=== PATIENT | male | born 1940 | race Caucasian/White ===

== ENCOUNTER 2020-10-26 21:32 | Inpatient (IN) | payer OTHER, MEDICARE ==
[~2020-10-26] VITALS: Ht 165.1 cm; Wt 76.1 kg
[~2020-10-26 21:32] MED LIST: ACIPHEX20 MG PO; ALBUTEROL; ASPIRIN E.C.325 MG PO; LISINOPRIL5 MG PO; MVI; NEXIUM40 MG PO; NIASPAN500 MG PO; OMEGA 31000 MG PO; REFRESH PLUS1 SOL OP; SINGULAIR10 MG PO; TRICOR145 MG PO; VENTOLIN0.09 MG IH; XALATAN EYE DROPS OU; ZOCOR80 MG PO; ZYRTEC10 MG PO; ZYRTEC5 MG PO; [UNRECOGNIZED DRUG - OTHER]; dorzolamide
[2020-10-26 22:03] LABS: BASO % 0.4 % (0.0-2.0); EOS # 0.1 (0.0-0.7); EOS % 1.4 % (0-4.0); HEMATOCRIT 37.3 % (42.0-52.0); HEMOGLOBIN 12.8 g/dl (13.5-18.0); LYMPH # 0.4 (1.2-3.4); LYMPH % 3.5 % (20.0-51.0); MEAN CELL VOLUME 91 fl (80.0-100.0); MEAN CORPUSCULAR HEMOGLOBIN 31 pg (27.0-31.0); MEAN CORPUSCULAR HGB CONC 34 g/dl (33.0-37.0); MONO # 0.6 (0.1-0.6); MONO % 5.7 % (1.7-9.3); PLATELET COUNT 258 K/mm3 (130-400); RED BLOOD COUNT 4.12 M/mm3 (4.20-5.60); REDCELL DISTRIBUTION WIDTH-CV 12.7 % (11.5-14.5)
[2020-10-26 22:11] LABS: INR 1.6 (0.8-3.0)
[2020-10-26 22:13] LABS: PARTIAL THROMBOPLASTIN TIME 34.9 SECONDS (26.0-37.0)
[2020-10-26 22:16] LABS: ALBUMIN 3.9 gm/dL (3.5-5.0); BILIRUBIN,TOTAL 0.7 mg/dL (0.0-1.0); CALCIUM 9.2 mg/dL (8.4-10.2); CREATININE, serum 0.94 (0.66-1.25); POTASSIUM 3.6 mmol/L (3.4-5.0); TOTAL PROTEIN 6.9 gm/dL (6.4-8.2)
[2020-10-26 22:27] LABS: TROPONIN-I 0.015 ng/mL (0.000-0.035)
[2020-10-27 02:21] VITALS: PULSE 70; TEMP 97.7
[2020-10-27] MEDS ORDERED: ELIQUIS 5MG PO (02:55)
[2020-10-27] MEDS ORDERED: LIPITOR 80MG80 MG PO (02:56)
[2020-10-27] MEDS ORDERED: COREG 25MG25 MG/TAB PO (02:57)
[2020-10-27] MEDS ORDERED: NEURONTIN100 MG/CAP PO (02:58)
[2020-10-27] MEDS ORDERED: MIRAPEX 1MG PO (02:59)
[2020-10-27] MEDS ORDERED: ENTRESTO 97 MG1 EACH PO (03:00)
[2020-10-27] MEDS ORDERED: NITROSTAT0.4 MG/TAB PO (03:01)
[2020-10-27] MEDS ORDERED: PLAVIX 75MG TAB75 MG PO (03:04)
[2020-10-27 04:00] VITALS: BP 148/66; PULSE 62; TEMP 98.9
[2020-10-27 07:29] LABS: HEMATOCRIT 39.8 % (42.0-52.0); HEMOGLOBIN 13.3 g/dl (13.5-18.0); MEAN CELL VOLUME 92 fl (80.0-100.0); MEAN CORPUSCULAR HEMOGLOBIN 31 pg (27.0-31.0); MEAN CORPUSCULAR HGB CONC 33 g/dl (33.0-37.0); MEAN PLATELET VOLUME 10.3 fl (7.4-10.4); PLATELET COUNT 275 K/mm3 (130-400); RED BLOOD COUNT 4.31 M/mm3 (4.20-5.60); REDCELL DISTRIBUTION WIDTH-CV 12.9 % (11.5-14.5)
[2020-10-27 07:36] LABS: CALCIUM 11.2 mg/dL (8.4-10.2); CREATININE, serum 0.93 (0.66-1.25)
[2020-10-27 07:43] VITALS: BP 153/66; PULSE 69; TEMP 97.8
[2020-10-27 08:50] LABS: BAND 19 % (0-10); LYMPHOCYTE 4 % (20.0-51.0); NEUTROPHILS 74 % (42.0-75.2)
[2020-10-27 08:51] LABS: BURR CELLS 2+
[2020-10-27 11:48] VITALS: BP 146/61; PULSE 66; TEMP 98.3
[2020-10-27 15:34] VITALS: BP 136/65; PULSE 75; TEMP 98.3
[2020-10-27 19:47] VITALS: BP 134/57; PULSE 74; TEMP 98.4
[2020-10-28] VITALS (7 sets, daily range): BP systolic 122–149; BP diastolic 51–68; PULSE 56–79; TEMP 97.7–99.9
[2020-10-29 03:37] VITALS: BP 141/62; PULSE 68; TEMP 98.1
[2020-10-29 03:41] LABS: ARTERIAL BLOOD GAS BASE EXCESS -1.2 (-2-2); ARTERIAL BLOOD GAS PCO2 28.3 mmHg (35-45); ARTERIAL BLOOD GAS pH 7.48 (7.35-7.45)
[2020-10-29 07:09] LABS: HEMOGLOBIN 11.9 g/dl (13.5-18.0); MEAN CELL VOLUME 91 fl (80.0-100.0); MEAN CORPUSCULAR HEMOGLOBIN 30 pg (27.0-31.0); MEAN CORPUSCULAR HGB CONC 34 g/dl (33.0-37.0); MEAN PLATELET VOLUME 10.1 fl (7.4-10.4); PLATELET COUNT 326 K/mm3 (130-400); RED BLOOD COUNT 3.92 M/mm3 (4.20-5.60); REDCELL DISTRIBUTION WIDTH-CV 13.2 % (11.5-14.5)
[2020-10-29 07:16] LABS: HEMATOCRIT 35.5 % (42.0-52.0)
[2020-10-29 07:23] LABS: CALCIUM 8.6 mg/dL (8.4-10.2); CREATININE, serum 1.03 (0.66-1.25); POTASSIUM 3.8 mmol/L (3.4-5.0)
[2020-10-29 07:57] VITALS: BP 125/68; PULSE 64; TEMP 97.7
[2020-10-29 08:49] LABS: BAND 14 % (0-10); LYMPHOCYTE 1 % (20.0-51.0); NEUTROPHILS 78 % (42.0-75.2)
[2020-10-29 08:50] LABS: PLATELET ESTIMATE NORMAL (NORMAL)
[2020-10-29 11:54] VITALS: BP 127/60; PULSE 64; TEMP 97.7
[2020-10-29 16:05] VITALS: BP 127/65; PULSE 72; TEMP 97.9
[2020-10-29 20:02] VITALS: BP 118/67; PULSE 67; TEMP 98.8
[2020-10-30] VITALS (440 sets, daily range): BP systolic 117–145; BP diastolic 53–75; PULSE 65–79; TEMP 97.3–100.7; O2SAT 73–98
[2020-10-30 07:47] LABS: BASO % 0.1 % (0.0-2.0); EOS % 0.1 % (0-4.0); GRAN # 15.1 (1.4-6.5); GRAN % 89.4 % (42.2-75.2); HEMOGLOBIN 12.4 g/dl (13.5-18.0); LYMPH # 0.9 (1.2-3.4); LYMPH % 5.1 % (20.0-51.0); MEAN CELL VOLUME 90 fl (80.0-100.0); MEAN CORPUSCULAR HEMOGLOBIN 31 pg (27.0-31.0); MEAN CORPUSCULAR HGB CONC 34 g/dl (33.0-37.0); MEAN PLATELET VOLUME 10.1 fl (7.4-10.4); MONO # 0.8 (0.1-0.6); MONO % 4.5 % (1.7-9.3); PLATELET COUNT 384 K/mm3 (130-400); RED BLOOD COUNT 4.06 M/mm3 (4.20-5.60); REDCELL DISTRIBUTION WIDTH-CV 13.3 % (11.5-14.5)
[2020-10-30 07:55] LABS: HEMATOCRIT 36.4 % (42.0-52.0)
[2020-10-30 08:09] LABS: CALCIUM 8.8 mg/dL (8.4-10.2); CREATININE, serum 0.96 (0.66-1.25); POTASSIUM 3.7 mmol/L (3.4-5.0)
[2020-10-30 08:18] LABS: ARTERIAL BLD GAS O2 SATURATION 89.5 % (92-100); ARTERIAL BLD GAS TCO2 CT 21.7; ARTERIAL BLOOD GAS BASE EXCESS 1.5 (-2-2); ARTERIAL BLOOD GAS pH 7.59 (7.35-7.45)
[2020-10-30 08:19] LABS: ARTERIAL BLOOD GAS PCO2 22.2 mmHg (35-45)
[2020-10-30 15:47] LABS: ARTERIAL BLD GAS O2 SATURATION 95.9 % (92-100); ARTERIAL BLOOD GAS BASE EXCESS -1.2 (-2-2); ARTERIAL BLOOD GAS HCO3 20.4 meq/L (22-26); ARTERIAL BLOOD GAS PO2 81.2 mmHg (80-100); ARTERIAL BLOOD GAS pH 7.51 (7.35-7.45)
[2020-10-31] VITALS (720 sets, daily range): BP systolic 104–135; BP diastolic 62–77; PULSE 65–91; TEMP 97.6–98.5; O2SAT 72–100
[2020-10-31 05:58] LABS: HEMATOCRIT 39.7 % (42.0-52.0); HEMOGLOBIN 13.2 g/dl (13.5-18.0); MEAN CELL VOLUME 92 fl (80.0-100.0); MEAN CORPUSCULAR HEMOGLOBIN 30 pg (27.0-31.0); MEAN CORPUSCULAR HGB CONC 33 g/dl (33.0-37.0); MEAN PLATELET VOLUME 9.8 fl (7.4-10.4); PLATELET COUNT 462 K/mm3 (130-400); RED BLOOD COUNT 4.34 M/mm3 (4.20-5.60); REDCELL DISTRIBUTION WIDTH-CV 13.5 % (11.5-14.5)
[2020-10-31 06:11] LABS: ALBUMIN 3.8 gm/dL (3.5-5.0); BILIRUBIN,TOTAL 0.7 mg/dL (0.0-1.0); CALCIUM 9.1 mg/dL (8.4-10.2); CREATININE, serum 1.15 (0.66-1.25); TOTAL PROTEIN 7.5 gm/dL (6.4-8.2)
[2020-10-31 06:22] LABS: LYMPHOCYTE 5 % (20.0-51.0); NEUTROPHILS 92 % (42.0-75.2); PLATELET ESTIMATE INCREASED (NORMAL)
[2020-10-31 06:29] LABS: C-REACTIVE PROTEIN 16.9 mg/dL (0.0-0.9)
[2020-10-31 12:09] LABS: ARTERIAL BLD GAS O2 SATURATION 90.8 % (92-100); ARTERIAL BLD GAS TCO2 CT 20.7; ARTERIAL BLOOD GAS BASE EXCESS -2.3 (-2-2); ARTERIAL BLOOD GAS HCO3 19.8 meq/L (22-26); ARTERIAL BLOOD GAS PO2 58.8 mmHg (80-100); ARTERIAL BLOOD GAS pH 7.48 (7.35-7.45)
[2020-11-01] VITALS (670 sets, daily range): BP systolic 109–139; BP diastolic 62–94; PULSE 55–78; TEMP 97.5–98.5; O2SAT 80–100
[2020-11-01 04:15] LABS: ARTERIAL BLD GAS O2 SATURATION 95.5 % (92-100); ARTERIAL BLD GAS TCO2 CT 20.1; ARTERIAL BLOOD GAS BASE EXCESS -3.4 (-2-2); ARTERIAL BLOOD GAS HCO3 19.2 meq/L (22-26); ARTERIAL BLOOD GAS PCO2 27.8 mmHg (35-45); ARTERIAL BLOOD GAS PO2 74.9 mmHg (80-100); ARTERIAL BLOOD GAS pH 7.46 (7.35-7.45)
[2020-11-01 04:29] LABS: HEMOGLOBIN 11.6 g/dl (13.5-18.0); MEAN CELL VOLUME 90 fl (80.0-100.0); MEAN CORPUSCULAR HEMOGLOBIN 31 pg (27.0-31.0); MEAN CORPUSCULAR HGB CONC 35 g/dl (33.0-37.0); MEAN PLATELET VOLUME 9.7 fl (7.4-10.4); RED BLOOD COUNT 3.73 M/mm3 (4.20-5.60); REDCELL DISTRIBUTION WIDTH-CV 13.9 % (11.5-14.5)
[2020-11-01 04:33] LABS: HEMATOCRIT 33.6 % (42.0-52.0); PLATELET COUNT 327 K/mm3 (130-400)
[2020-11-01 04:46] LABS: C-REACTIVE PROTEIN 20.5 mg/dL (0.00-0.50); CALCIUM 9.1 mg/dL (8.4-10.2); CREATININE, serum 1.11 mg/dL (0.72-1.25); MAGNESIUM 2.6 mg/dL (1.6-2.6); POTASSIUM 3.8 mmol/L (3.5-4.5)
[2020-11-01 05:36] LABS: BAND 15 % (0-10); LYMPHOCYTE 5 % (20.0-51.0); METAMYELOCYTE 1 % (0-0); NEUTROPHILS 75 % (42.0-75.2)
[2020-11-01 05:37] LABS: BURR CELLS 1+; PLATELET ESTIMATE NORMAL (NORMAL); POIKILOCYTOSIS 1+
[2020-11-02] VITALS (416 sets, daily range): BP systolic 97–131; BP diastolic 51–65; PULSE 68–96; TEMP 97.6–98.3; O2SAT 76–100
[2020-11-02 03:37] LABS: MEAN CELL VOLUME 88 fl (80.0-100.0); MEAN CORPUSCULAR HEMOGLOBIN 31 pg (27.0-31.0); MEAN CORPUSCULAR HGB CONC 35 g/dl (33.0-37.0); PLATELET COUNT 366 K/mm3 (130-400); RED BLOOD COUNT 3.92 M/mm3 (4.20-5.60); REDCELL DISTRIBUTION WIDTH-CV 13.6 % (11.5-14.5)
[2020-11-02 04:55] LABS: C-REACTIVE PROTEIN 13.7 mg/dL (0.00-0.50); CALCIUM 8.9 mg/dL (8.4-10.2); CREATININE, serum 0.86 mg/dL (0.72-1.25); MAGNESIUM 2.3 mg/dL (1.6-2.6); POTASSIUM 4.2 mmol/L (3.5-4.5)
[2020-11-02 05:04] LABS: HEMATOCRIT 34.3 % (42.0-52.0)
[2020-11-02 05:07] LABS: BAND 2 % (0-10); BURR CELLS 1+; LYMPHOCYTE 3 % (20.0-51.0); NEUTROPHILS 93 % (42.0-75.2); PLATELET ESTIMATE NORMAL (NORMAL)
[2020-11-02 05:08] LABS: SCHISTOCYTES 1+
[2020-11-03 03:11] LABS: ARTERIAL BLD GAS TCO2 CT 20.4; ARTERIAL BLOOD GAS BASE EXCESS -2.8 (-2-2); ARTERIAL BLOOD GAS HCO3 19.5 meq/L (22-26); ARTERIAL BLOOD GAS PCO2 28.2 mmHg (35-45); ARTERIAL BLOOD GAS PO2 58.8 mmHg (80-100); ARTERIAL BLOOD GAS pH 7.46 (7.35-7.45)
[2020-11-03 03:29] VITALS: BP 120/59; PULSE 67; TEMP 98.1
[2020-11-03 06:34] LABS: HEMOGLOBIN 12.4 g/dl (13.5-18.0); MEAN CELL VOLUME 91 fl (80.0-100.0); MEAN CORPUSCULAR HEMOGLOBIN 31 pg (27.0-31.0); MEAN CORPUSCULAR HGB CONC 34 g/dl (33.0-37.0); MEAN PLATELET VOLUME 10.3 fl (7.4-10.4); PLATELET COUNT 306 K/mm3 (130-400); RED BLOOD COUNT 3.98 M/mm3 (4.20-5.60); REDCELL DISTRIBUTION WIDTH-CV 13.6 % (11.5-14.5)
[2020-11-03 06:40] LABS: C-REACTIVE PROTEIN 16.8 mg/dL (0.00-0.50); CALCIUM 8.8 mg/dL (8.4-10.2); CREATININE, serum 0.84 mg/dL (0.72-1.25); POTASSIUM 4.1 mmol/L (3.5-4.5)
[2020-11-03 08:46] VITALS: BP 113/64; PULSE 95; TEMP 98.3
[2020-11-03 09:05] LABS: BURR CELLS 1+; LYMPHOCYTE 2 % (20.0-51.0); NEUTROPHILS 97 % (42.0-75.2); PLATELET ESTIMATE NORMAL (NORMAL)
[2020-11-03 12:09] VITALS: BP 107/57; PULSE 75; TEMP 98.3
[2020-11-03 12:57] LABS: CLOSTRIDIUM DIFF A/B NEG; CLOSTRIDIUM DIFF A/B INTERP No C.diff present
[2020-11-03 16:33] VITALS: BP 130/71; PULSE 76; TEMP 98.4
[2020-11-03 20:03] VITALS: BP 120/64; PULSE 70; TEMP 97.8
[2020-11-03 23:46] VITALS: BP 125/62; PULSE 76; TEMP 98
[2020-11-04] VITALS (350 sets, daily range): BP systolic 62–163; BP diastolic 34–78; PULSE 44–104; TEMP 97.9–98.7; O2SAT 56–100
[2020-11-04 03:15] LABS: ARTERIAL BLD GAS O2 SATURATION 91.4 % (92-100); ARTERIAL BLD GAS TCO2 CT 21.3; ARTERIAL BLOOD GAS BASE EXCESS -2.2 (-2-2); ARTERIAL BLOOD GAS HCO3 20.4 meq/L (22-26); ARTERIAL BLOOD GAS PCO2 28.9 mmHg (35-45); ARTERIAL BLOOD GAS PO2 58.4 mmHg (80-100); ARTERIAL BLOOD GAS pH 7.47 (7.35-7.45)
[2020-11-04 07:13] LABS: HEMOGLOBIN 12.7 g/dl (13.5-18.0); MEAN CELL VOLUME 89 fl (80.0-100.0); MEAN CORPUSCULAR HEMOGLOBIN 31 pg (27.0-31.0); MEAN CORPUSCULAR HGB CONC 34 g/dl (33.0-37.0); PLATELET COUNT 259 K/mm3 (130-400); RED BLOOD COUNT 4.16 M/mm3 (4.20-5.60)
[2020-11-04 07:14] LABS: HEMATOCRIT 36.9 % (42.0-52.0)
[2020-11-04 07:33] LABS: C-REACTIVE PROTEIN 16.5 mg/dL (0.00-0.50); CREATININE, serum 0.85 mg/dL (0.72-1.25); POTASSIUM 4.6 mmol/L (3.5-4.5)
[2020-11-04 07:58] LABS: BAND 11 % (0-10); LYMPHOCYTE 2 % (20.0-51.0); NEUTROPHILS 87 % (42.0-75.2)
[2020-11-04 07:59] LABS: MICROCYTOSIS 1+; OVALOCYTES 1+; PLATELET ESTIMATE NORMAL (NORMAL)
[2020-11-04 15:11] LABS: ARTERIAL BLD GAS O2 SATURATION 98.7 % (92-100); ARTERIAL BLD GAS TCO2 CT 21.9; ARTERIAL BLOOD GAS BASE EXCESS -4.5 (-2-2); ARTERIAL BLOOD GAS HCO3 20.8 meq/L (22-26); ARTERIAL BLOOD GAS PCO2 38.9 mmHg (35-45); ARTERIAL BLOOD GAS pH 7.35 (7.35-7.45)
[2020-11-04 15:13] LABS: ARTERIAL BLOOD GAS PO2 145.7 mmHg (80-100)
[2020-11-04 20:10] LABS: ARTERIAL BLD GAS O2 SATURATION 98.3 % (92-100); ARTERIAL BLD GAS TCO2 CT 21.6; ARTERIAL BLOOD GAS HCO3 20.4 meq/L (22-26); ARTERIAL BLOOD GAS PCO2 39.2 mmHg (35-45); ARTERIAL BLOOD GAS pH 7.34 (7.35-7.45)
[2020-11-04 20:11] LABS: ARTERIAL BLOOD GAS PO2 132.9 mmHg (80-100)
[2020-11-05] VITALS (748 sets, daily range): BP systolic 75–161; BP diastolic 38–77; PULSE 44–100; TEMP 97.7–97.9; O2SAT 80–100
[2020-11-05 04:32] LABS: ARTERIAL BLD GAS O2 SATURATION 94.9 % (92-100); ARTERIAL BLD GAS TCO2 CT 18.2; ARTERIAL BLOOD GAS BASE EXCESS -8.3 (-2-2); ARTERIAL BLOOD GAS HCO3 17.1 meq/L (22-26); ARTERIAL BLOOD GAS PCO2 35.2 mmHg (35-45); ARTERIAL BLOOD GAS pH 7.31 (7.35-7.45)
[2020-11-05 04:51] LABS: HEMOGLOBIN 12.2 g/dl (13.5-18.0); MEAN CELL VOLUME 91 fl (80.0-100.0); MEAN CORPUSCULAR HEMOGLOBIN 30 pg (27.0-31.0); MEAN CORPUSCULAR HGB CONC 33 g/dl (33.0-37.0); MEAN PLATELET VOLUME 10.4 fl (7.4-10.4); PLATELET COUNT 242 K/mm3 (130-400); RED BLOOD COUNT 4.04 M/mm3 (4.20-5.60); REDCELL DISTRIBUTION WIDTH-CV 14.1 % (11.5-14.5)
[2020-11-05 04:53] LABS: HEMATOCRIT 36.7 % (42.0-52.0)
[2020-11-05 05:15] LABS: BAND 4 % (0-10); LYMPHOCYTE 2 % (20.0-51.0); NEUTROPHILS 92 % (42.0-75.2); PLATELET ESTIMATE NORMAL (NORMAL)
[2020-11-05 05:16] LABS: CALCIUM 8.4 mg/dL (8.4-10.2); CREATININE, serum 1.19 mg/dL (0.72-1.25); MAGNESIUM 2.7 mg/dL (1.6-2.6); PHOSPHOROUS 5.3 mg/dL (2.3-4.7); POTASSIUM 4.9 mmol/L (3.5-4.5)
[2020-11-05 16:07] LABS: ARTERIAL BLD GAS O2 SATURATION 90.6 % (92-100); ARTERIAL BLOOD GAS BASE EXCESS -5.9 (-2-2); ARTERIAL BLOOD GAS PCO2 31.2 mmHg (35-45); ARTERIAL BLOOD GAS PO2 62.4 mmHg (80-100); ARTERIAL BLOOD GAS pH 7.38 (7.35-7.45)
[2020-11-06] VITALS (742 sets, daily range): BP systolic 50–151; BP diastolic 30–75; PULSE 55–91; TEMP 97.8–98.8; O2SAT 81–100
[2020-11-06 03:46] LABS: ARTERIAL BLD GAS TCO2 CT 17.5; ARTERIAL BLOOD GAS BASE EXCESS -7.8 (-2-2); ARTERIAL BLOOD GAS HCO3 16.5 meq/L (22-26); ARTERIAL BLOOD GAS PCO2 30.6 mmHg (35-45); ARTERIAL BLOOD GAS PO2 67.5 mmHg (80-100); ARTERIAL BLOOD GAS pH 7.35 (7.35-7.45)
[2020-11-06 04:25] LABS: HEMOGLOBIN 13.1 g/dl (13.5-18.0); MEAN CELL VOLUME 94 fl (80.0-100.0); MEAN CORPUSCULAR HEMOGLOBIN 31 pg (27.0-31.0); MEAN CORPUSCULAR HGB CONC 33 g/dl (33.0-37.0); MEAN PLATELET VOLUME 10.4 fl (7.4-10.4); PLATELET COUNT 301 K/mm3 (130-400); RED BLOOD COUNT 4.27 M/mm3 (4.20-5.60); REDCELL DISTRIBUTION WIDTH-CV 14.3 % (11.5-14.5)
[2020-11-06 04:47] LABS: CALCIUM 8.4 mg/dL (8.4-10.2); CREATININE, serum 1.5 mg/dL (0.72-1.25); PHOSPHOROUS 4.3 mg/dL (2.3-4.7); POTASSIUM 4.6 mmol/L (3.5-4.5)
[2020-11-06 05:26] LABS: BAND 1 % (0-10); EOSINOPHIL 6 % (0-4); LYMPHOCYTE 2 % (20.0-51.0); NEUTROPHILS 90 % (42.0-75.2)
[2020-11-06 05:27] LABS: ANISOCYTOSIS 1+; OVALOCYTES 1+; PLATELET ESTIMATE NORMAL (NORMAL); POIKILOCYTOSIS 1+
[2020-11-06 15:27] LABS: ARTERIAL BLD GAS O2 SATURATION 97.3 % (92-100); ARTERIAL BLD GAS TCO2 CT 18.1; ARTERIAL BLOOD GAS PCO2 33.6 mmHg (35-45); ARTERIAL BLOOD GAS PO2 101.3 mmHg (80-100); ARTERIAL BLOOD GAS pH 7.32 (7.35-7.45)
[2020-11-07] VITALS (392 sets, daily range): BP systolic 69–136; BP diastolic 42–61; PULSE 69–96; TEMP 98.2–98.9; O2SAT 79–100
[2020-11-07 00:53] LABS: ARTERIAL BLD GAS O2 SATURATION 93.2 % (92-100); ARTERIAL BLOOD GAS BASE EXCESS -3.6 (-2-2); ARTERIAL BLOOD GAS HCO3 20.9 meq/L (22-26); ARTERIAL BLOOD GAS PCO2 36.1 mmHg (35-45); ARTERIAL BLOOD GAS PO2 69.1 mmHg (80-100); ARTERIAL BLOOD GAS pH 7.38 (7.35-7.45)
[2020-11-07 05:06] LABS: ARTERIAL BLD GAS O2 SATURATION 91.4 % (92-100); ARTERIAL BLD GAS TCO2 CT 24.3; ARTERIAL BLOOD GAS BASE EXCESS -1.3 (-2-2); ARTERIAL BLOOD GAS HCO3 23.1 meq/L (22-26); ARTERIAL BLOOD GAS PCO2 37.8 mmHg (35-45); ARTERIAL BLOOD GAS PO2 62.2 mmHg (80-100)
[2020-11-07 05:31] LABS: BASO % 0.2 % (0.0-2.0); EOS # 1.5 (0.0-0.7); EOS % 9.1 % (0-4.0); GRAN # 14.2 (1.4-6.5); GRAN % 86.5 % (42.2-75.2); HEMATOCRIT 39.3 % (42.0-52.0); HEMOGLOBIN 13.1 g/dl (13.5-18.0); LYMPH # 0.4 (1.2-3.4); LYMPH % 2.4 % (20.0-51.0); MEAN CELL VOLUME 90 fl (80.0-100.0); MEAN CORPUSCULAR HEMOGLOBIN 30 pg (27.0-31.0); MEAN CORPUSCULAR HGB CONC 33 g/dl (33.0-37.0); MEAN PLATELET VOLUME 10.7 fl (7.4-10.4); MONO # 0.1 (0.1-0.6); MONO % 0.9 % (1.7-9.3); PLATELET COUNT 251 K/mm3 (130-400); RED BLOOD COUNT 4.35 M/mm3 (4.20-5.60); REDCELL DISTRIBUTION WIDTH-CV 13.9 % (11.5-14.5)
[2020-11-07 05:32] LABS: CALCIUM 8.2 mg/dL (8.4-10.2); CREATININE, serum 1.49 mg/dL (0.72-1.25); MAGNESIUM 2.7 mg/dL (1.6-2.6); POTASSIUM 4.7 mmol/L (3.5-4.5)
[2020-11-07 09:26] LABS: ARTERIAL BLD GAS O2 SATURATION 80.3 % (92-100); ARTERIAL BLD GAS TCO2 CT 20.6; ARTERIAL BLOOD GAS BASE EXCESS -4.8 (-2-2); ARTERIAL BLOOD GAS HCO3 19.6 meq/L (22-26); ARTERIAL BLOOD GAS PCO2 34.2 mmHg (35-45); ARTERIAL BLOOD GAS pH 7.38 (7.35-7.45)
== END 2020-11-07 15:19 | disposition expired | DRG 208 ==
LOC: COL.ER 21:32 → ICU 23:19 → MEDICAL 23:19 → ICU 10-30 09:33 → MEDICAL 11-02 15:43 → ICU 11-04 11:36
PROVIDERS: Internal Medicine; Internal Medicine Pulmonary Disease; Student in an Organized Health Care Education/Training Program; ADMIT Student in an Organized Health Care Education/Training Program
PROC: 5A09457 Assistance with Respiratory Ventilation, 24-96 Consecutive Hours, Continuous Positive Airway Pressure (ICD-10-PCS; 2020-10-27)
PROC: XW043E5 Introduction of Remdesivir Anti-infective into Central Vein, Percutaneous Approach, New Technology Group 5 (ICD-10-PCS; principal; 2020-10-28)
PROC: 02HV33Z Insertion of Infusion Device into Superior Vena Cava, Percutaneous Approach (ICD-10-PCS; 2020-10-31)
PROC: 5A1945Z Respiratory Ventilation, 24-96 Consecutive Hours (ICD-10-PCS; 2020-11-04)
PROC: 0BH17EZ Insertion of Endotracheal Airway into Trachea, Via Natural or Artificial Opening (ICD-10-PCS; 2020-11-04)
DX: U07.1 COVID-19 (principal); J12.82 Pneumonia due to coronavirus disease 2019; J96.01 Acute respiratory failure with hypoxia; J15.9 Unspecified bacterial pneumonia; I50.22 Chronic systolic (congestive) heart failure; K92.2 Gastrointestinal hemorrhage, unspecified; E87.2 Acidosis; I25.10 Atherosclerotic heart disease of native coronary artery without angina pectoris; E78.5 Hyperlipidemia, unspecified; R07.89 Other chest pain; I95.89 Other hypotension; R19.7 Diarrhea, unspecified; D72.829 Elevated white blood cell count, unspecified; Z66 Do not resuscitate; G47.33 Obstructive sleep apnea (adult) (pediatric); G25.81 Restless legs syndrome; K21.9 Gastro-esophageal reflux disease without esophagitis; M10.9 Gout, unspecified; Z87.891 Personal history of nicotine dependence; I25.2 Old myocardial infarction; Z79.82 Long term (current) use of aspirin
CPT/HCPCS: 99223-AI; 99232-AI; 99233-AI; 99239; A9284; C1751; C9113; J0330; J0692; J0696; J1100; J1650; J1940; J2250; J2704; J3010; J7050; J7060; J7120; J8540; Q0249; Q9967